=== PATIENT | female | born 1940 | race Caucasian/White ===

== ENCOUNTER 2019-07-24 21:13 | Emergency (ER) | payer MEDICARE ==
--- NOTE | 2019-07-24 22:20 | RAD ---
EXAM: CHEST ONE VIEW HISTORY: Chest pain COMPARISON: None FINDINGS: Cardiac silhouette is magnified by projection. Pulmonary vasculature is within normal limits. Calcifi ed left hilar and mediastinal lymph nodes are seen related to prior granulomatous disease. The lungs are clear. The osseous structures are intact. IMPRESSION: No acute cardiopulmonary process.
[2019-07-24 22:43] LABS: #Eosinphils 0.1 thou/uL (0.0-0.7); #Lymphocytes 0.8 thou/uL (1.20-3.40); #Monocytes 0.4 thou/uL (0.11-0.59); #Neutrophils 7.2 thou/uL (1.40-6.50); %Basophils 0.4 % (0.0-1.0); %Eosinophils 1.3 % (0.0-10.0); %Lymphocytes 9.9 % (21.0-51.0); %Monocytes 4.3 % (0.0-10.0); %Neutrophils 84.1 % (42.0-75.0); Hemoglobin 14.1 g/dL (12.0-16.0); Mean Corpuscular HGB CONC 31.4 g/dL (32.0-36.0); Mean Corpuscular Hemoglobin 27.8 pg (27.0-31.0); Mean Corpuscular Volume 88.4 fL (78.0-98.0); Mean Platelet Volume 8.1 fL (7.4-10.4); Platelet Count 242 thou/uL (130-400); RBC Distribution Width 12.1 % (11.5-14.5); Red Blood Cell (RBC) Count 5.08 mill/uL (4.20-5.40); White Blood Cell (WBC) Count 8.5 thou/uL (4.8-10.8)
[2019-07-24] MEDS ORDERED: Pantoprazole 40 MG VIAL ONE (23:01)
[2019-07-24 23:06] LABS: ALT (SGPT) 16 U/L (8-55); AST (SGOT) 21 U/L (5-34); Albumin 4.5 g/dL (3.4-4.8); Alkaline Phosphatase 111 U/L (40-110); Anion Gap 18 mmol/L (10-20); BUN (Urea Nitrogen) 18 mg/dL (9.8-20.1); Calc. Creatinine Clearance 0 mL/min (70-130); Calcium 10.2 mg/dL (7.8-10.44); Carbon Dioxide 25 mmol/L (23-31); Chloride 98 mmol/L (98-107); Estimated GFR-MDRD 69; Globulin 3.6 g/dL (2.4-3.5); Glucose 120 mg/dL (83-110); Potassium 3.7 mmol/L (3.5-5.1); Protein, Total 8.1 g/dL (6.0-8.3); Sodium 137 mmol/L (136-145)
[2019-07-24 23:14] LABS: Bilirubin, Total 0.5 mg/dL (0.2-1.2)
--- NOTE | 2019-07-24 23:25 | CT ---
NONCONTRAST CT THORAX: 07/24/19 HISTORY: Chest pain. Possible food stuck in esophagus. COMPARISON: None. FINDINGS: Lack of intravenous contrast limits evaluation of the mediastinal structures as well as the vasculatu re. Vascular calcifications are seen in the thoracic aorta. Calcified mediastinal left hilar lymph nodes are present. There are no enlarged lymph nodes seen on t his nonenhanced CT scan examination within the mediastinum. Majority of the esophagus is decompressed . However, there is an area in the most proximal thoracic esophagus at the level of the T1 vertebral body which demonstrates mild asymmetric prominence to the remainder of the esophagus with gas density as well as decreased density material seen in this region. The esophagus in this region measures [place] roximately 1.8 cm. The lungs are clear. No consolidation, pleural effusion, pulmonary nodule, or mass is seen in the janina gs bilaterally. Upper abdomen demonstrates post cholecystectomy changes with calcified granulomata seen in the liver and spleen. There is question of dilatation of the upper pole left renal system, but this is incompletely evaluat ed or imaged on this exam. Multilevel degenerative changes are seen throughout the visualized lower cervical spine as well as in volving the thoracic and upper lumbar spine. IMPRESSION: 1. Possible retained ingested material in proximal thoracic esophagus. 2. Question of mild left hydronephrosis, but this is incompletely imaged or evaluated on this ex am. 3. Post cholecystectomy changes. POS: RUEL
[2019-07-25] MEDS ORDERED: Ondansetron PF 4 MG/2 ML Vial ONE (00:08)
--- NOTE | 2019-07-27 10:08 | CT ---
NONCONTRAST CT THORAX: 07/24/19 HISTORY: Chest pain. Possible food stuck in esophagus. COMPARISON: None. FINDINGS: Lack of intravenous contrast limits evaluation of the mediastinal structures as well as the vasculatu re. Vascular calcifications are seen in the thoracic aorta. Calcified mediastinal left hilar lymph nodes are present. There are no enlarged lymph nodes seen on t his nonenhanced CT scan examination within the mediastinum. Majority of the esophagus is decompressed. However, there is an area in the most proximal thoracic esophagus at the level of the T 1 vertebral body which demonstrates mild asymmetric prominence to the remainder of the esophagus with gas density as well as decreased density material seen in this region. The esophagus in this reg ion measures approximately 1.8 cm. The lungs are clear. No consolidation, pleural effusion, pulmonary nodule, or mass is seen in the janina gs bilaterally. Upper abdomen demonstrates post cholecystectomy changes with calcified granulomata seen in the liver and spleen. There is question of dilatation of the upper pole left renal system, but this is incompletely evaluat ed or imaged on this exam. Multilevel degenerative changes are seen throughout the visualized lower cervical spine as well as in volving the thoracic and upper lumbar spine. IMPRESSION: 1. Possible retained ingested material in proximal thoracic esophagus which may correspond to patien t?s foreign body sensation. Clinical correlation is suggested. 2. Question of mild left hydronephrosis, but this is incompletely imaged or evaluated on this exam. 3. Post cholecystectomy changes. 4. Above findings were discussed with Dr. Amin in the Emergency Department on 07/24/2019 at 2 336 hours. Transcribed Date/Time: 07/27/2019 10:08 AM
== END 2019-07-25 00:18 | disposition short-term general hospital (02) ==
LOC: MADERS 21:13
DX: T18.128A Food in esophagus causing other injury, initial encounter (principal); A52.79 Other symptomatic late syphilis; I10 Essential (primary) hypertension; E78.00 Pure hypercholesterolemia, unspecified; E03.9 Hypothyroidism, unspecified; K21.9 Gastro-esophageal reflux disease without esophagitis; Z79.899 Other long term (current) drug therapy
CPT/HCPCS: 71045; 71250; 80053; 85025; 96374; 96375; C9113; J2405

== ENCOUNTER 2021-05-05 10:05 | Emergency (ER) | payer MEDICARE ==
[2021-05-05 10:44] LABS: #Eosinphils 0.1 thou/uL (0.0-0.7); #Lymphocytes 0.9 thou/uL (1.20-3.40); #Monocytes 0.8 thou/uL (0.11-0.59); #Neutrophils 7.1 thou/uL (1.40-6.50); %Basophils 0.4 % (0.0-1.0); %Lymphocytes 10.5 % (21.0-51.0); %Monocytes 8.6 % (0.0-10.0); %Neutrophils 79.4 % (42.0-75.0); Hemoglobin 12.9 g/dL (12.0-16.0); Mean Corpuscular HGB CONC 33.2 g/dL (32.0-36.0); Mean Corpuscular Hemoglobin 29.1 pg (27.0-31.0); Mean Corpuscular Volume 87.9 fL (78.0-98.0); Mean Platelet Volume 7.1 fL (7.4-10.4); Platelet Count 258 thou/uL (130-400); RBC Distribution Width 11.9 % (11.5-14.5); Red Blood Cell (RBC) Count 4.44 mill/uL (4.20-5.40)
[2021-05-05 10:58] LABS: ALT (SGPT) 13 U/L (8-55); AST (SGOT) 18 U/L (5-34); Albumin 3.8 g/dL (3.4-4.8); Alkaline Phosphatase 103 U/L (40-110); Anion Gap 13 mmol/L (10-20); BUN (Urea Nitrogen) 11 mg/dL (9.8-20.1); Bilirubin, Total 0.8 mg/dL (0.2-1.2); CK (CPK) 52 U/L (29-168); Calc. Creatinine Clearance 0 mL/min (70-130); Calcium 9.6 mg/dL (7.8-10.44); Carbon Dioxide 30 mmol/L (23-31); Chloride 96 mmol/L (98-107); Globulin 3.3 g/dL (2.4-3.5); Glucose 107 mg/dL (83-110); Potassium 3.2 mmol/L (3.5-5.1); Protein, Total 7.1 g/dL (5.8-8.1); Sodium 136 mmol/L (136-145)
[2021-05-05 11:00] LABS: CKMB 0.9 ng/mL (0-6.6)
[2021-05-05] MEDS ORDERED: Ondansetron ODT 4 MG TAB ONE (12:11)
[2021-05-05] MEDS ORDERED: Ketorolac Tromethamine 30 MG/ML VIAL ONE (12:11)
== END 2021-05-05 12:24 | disposition home or self-care (01) ==
LOC: MADERS 10:05
DX: J20.9 Acute bronchitis, unspecified (principal); J01.90 Acute sinusitis, unspecified; R09.1 Pleurisy; I10 Essential (primary) hypertension; E78.00 Pure hypercholesterolemia, unspecified; E03.9 Hypothyroidism, unspecified; K21.9 Gastro-esophageal reflux disease without esophagitis; Z87.19 Personal history of other diseases of the digestive system; Z79.899 Other long term (current) drug therapy
CPT/HCPCS: 36415; 71045; 80053; 82550; 82553; 84484; 85025; 93005; 94760; 96372; J1885; Q0162

== ENCOUNTER 2021-11-12 11:30 | Emergency (ER) | payer MEDICARE ==
[2021-11-12 13:39] LABS: #Lymphocytes 1.1 thou/uL (1.20-3.40); #Monocytes 0.8 thou/uL (0.11-0.59); #Neutrophils 6.7 thou/uL (1.40-6.50); %Basophils 0.5 % (0.0-1.0); %Eosinophils 0.3 % (0.0-10.0); %Lymphocytes 12.2 % (21.0-51.0); %Monocytes 9.7 % (0.0-10.0); %Neutrophils 77.3 % (42.0-75.0); Hemoglobin 12.8 g/dL (12.0-16.0); Mean Corpuscular HGB CONC 32.2 g/dL (32.0-36.0); Mean Corpuscular Hemoglobin 27.3 pg (27.0-31.0); Mean Corpuscular Volume 84.7 fL (78.0-98.0); Mean Platelet Volume 8.3 fL (7.4-10.4); Platelet Count 232 thou/uL (130-400); RBC Distribution Width 12.1 % (11.5-14.5); Red Blood Cell (RBC) Count 4.69 mill/uL (4.20-5.40); White Blood Cell (WBC) Count 8.7 thou/uL (4.8-10.8)
[2021-11-12] MEDS ORDERED: Sodium Chloride 0.9% 1,000 ML ONE (13:39)
[2021-11-12] MEDS ORDERED: Ibuprofen 400 MG TAB ONE (13:39)
[2021-11-12 13:54] LABS: ALT (SGPT) 10 U/L (8-55); AST (SGOT) 19 U/L (5-34); Albumin 3.7 g/dL (3.4-4.8); Alkaline Phosphatase 116 U/L (40-110); Anion Gap 20 mmol/L (10-20); BUN (Urea Nitrogen) 8 mg/dL (9.8-20.1); Calc. Creatinine Clearance 0 mL/min (70-130); Calcium 9.8 mg/dL (7.8-10.44); Carbon Dioxide 25 mmol/L (23-31); Chloride 95 mmol/L (98-107); Globulin 3.8 g/dL (2.4-3.5); Glucose 100 mg/dL (83-110); Lipase 12 U/L (8-78); Protein, Total 7.5 g/dL (5.8-8.1); Sodium 137 mmol/L (136-145)
[2021-11-12 14:10] LABS: Potassium 2.9 mmol/L (3.5-5.1)
[2021-11-12 14:18] LABS: SARS-CoV-2 NAA Rapid Test Not Detected (NotDetected)
[2021-11-12] MEDS ORDERED: Morphine 4 MG/ML VIAL ONE (15:47)
[2021-11-12] MEDS ORDERED: Aspirin 325 MG TAB ONE (15:48)
[2021-11-12] MEDS ORDERED: Nitroglycerin 2% Ointment 1 INCH/1 GM Packet ONE (15:48)
[2021-11-12] MEDS ORDERED: Potassium Chloride 20 MEQ TAB ONE (15:48)
[2021-11-12 16:59] LABS: Bacteria/HPF Rare-Few HPF (None Seen); Bilirubin Negative (Negative); Blood, Urine Small (Negative); Clarity Clear (Clear); Glucose, Urine (Dipstick) Negative (Negative); Ketone, Urine 15 mg/dL (Negative); Leukocyte Negative (Negative); Nitrite Negative (Negative); Protein, Urine (Dipstick) Negative (Neg-Trace); Specific Gravity, Urine 1.015 (1.005-1.030); Squamous Epithelial 0-3 HPF (0-3); WBC/HPF 0-3 HPF (0-3)
== END 2021-11-12 16:52 | disposition short-term general hospital (02) ==
LOC: MADERS 11:30
DX: R07.89 Other chest pain (principal); E87.6 Hypokalemia; M79.10 Myalgia, unspecified site; Z20.822 Contact with and (suspected) exposure to COVID-19; Z79.899 Other long term (current) drug therapy; I10 Essential (primary) hypertension; E78.00 Pure hypercholesterolemia, unspecified; E03.9 Hypothyroidism, unspecified; K21.9 Gastro-esophageal reflux disease without esophagitis
CPT/HCPCS: 36415; 71045; 80053; 81003; 81015; 83605; 83690; 84484; 85025; 87040; 87081; 87430; 87804; 93005; 96374; J2270; J7050; U0002